=== PATIENT | female | born 1980 | race Native Hawaiian/Other Pacific Islander ===

== ENCOUNTER 2023-10-01 12:12 | Emergency (ER) | payer MEDICARE, MEDICAID, SELFPAY ==
[2023-10-01 12:14] VITALS: BP 139/88; PULSE 86; RESP 14; TEMP 35.4; O2SAT 100; BMI 38.8
--- NOTE | 2023-10-01 12:59 | EKG12_ITS ---
Test Reason : PLACEMENT Blood Pressure : / mmHG Vent. Rate : 077 BPM Atrial Rate : 077 BPM P-R Int : 182 ms QRS Dur : 090 ms QT Int : 366 ms P-R-T Axes : 025 -27 -07 degrees QTc Int : 414 ms Normal sinus rhythm with sinus arrhythmia Minimal voltage criteria for LVH, may be normal variant ( R in aVL ) Borderline ECG No previous ECGs available Confirmed by ASHANTI SAUNDERS, NIDIA ([id number]), supervising editor trailer GRIS HEMPHILL ([id number]) on 10/07/2023 6:13:09 AM Referred By: Confirmed By:NIDIA BURRELL MD
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
[2023-10-01 13:14] VITALS: RESP 16
[2023-10-01 13:28] LABS: Absolute Lymphocyte Count 1.78 X10^3/uL (0.83-4.51); Absolute Neutrophil Count 2.8 X10^3/uL (2.0-7.7); Amphetamine Urine VISTA NEGATIVE (<1000 ng/mL); Barbiturate Urine VISTA NEGATIVE (< 200 ng/mL); Basophil# 0.09 X10^3/uL; Basophil% 1.7 % (0-1); Benzodiazepine Urine VISTA NEGATIVE (< 200 ng/mL); Cocaine Urine VISTA NEGATIVE (< 300 ng/mL); Ecstacy Urine VISTA NEGATIVE (< 500 ng/mL); Eosinophil# 0.15 X10^3/uL; Eosinophils% 2.9 % (0-5); Hematocrit 45.1 % (37-47); Hemoglobin 13.6 g/dL (12.0-15.0); Internal QC Validated? YES +Cl - CLEAR BKGD; Lymphocyte # 1.78 X10^3/ul (0.83-4.51); Lymphocyte % 34.2 % (19-41); Mean Corp Hgb Conc 30.2 g/dL (32-36); Mean Corpuscular Hgb 23.7 pg (27.0-32.0); Mean Corpuscular Volume 78.6 fL (81-99); Mean Platelet Vol. 10.9 fl (6.2-12.0); Methadone Urine VISTA NEGATIVE (< 300 ng/mL); Monocyte# 0.36 X10^3/uL; Monocyte% 6.9 % (0-10); NRBC Flagged by Analyzer 0 % (0-5); Neutrophil # 2.82 X10^3/uL (2.7-7.7); Neutrophil % 54.1 % (47-70); PCP Urine VISTA NEGATIVE (< 25 ng/mL); Platelet Count 243 K/mm3 (150-450); Pregnancy, Serum, hCG Quali. NEGATIVE Negative; RBC Distribution Width CV 13.2 % (11.6-14.6); RBC Distribution Width SD 37.2 fl (35.1-43.9); Red Blood Count 5.74 M/mm3 (4.2-5.4); THC Urine VISTA NEGATIVE (< 50 ng/mL); Vista UDS pH Range 5; White Blood Count 5.2 K/mm3 (4.4-11.0)
[2023-10-01 13:30] LABS: Alcohol, Blood (Medical)-Serum < 3.0 mg/dL
[2023-10-01 13:34] LABS: ALB/GLOB Ratio 1.2 RATIO (0.9-2.4); AST(SGOT) 56 U/L (15-37); Alanine Aminotransfer ALT/SGPT 62 U/L (13-56); Albumin, Serum 4.2 g/dL (3.2-5.0); Alkaline Phosphatase 170 U/L (45-117); Anion Gap 5 (5-15); BUN 9 mg/dL (7-18); BUN/Creat Ratio 7.1 RATIO (10-20); Calcium,Total 9.6 mg/dL (8.5-10.1); Chloride 104 mmol/L (98-107); Creatinine, Serum 1.26 mg/dL (0.55-1.02); EST Glomerular Filtration Rate 49 mL/min (>60); Est Glom Filt Rate - Afr Amer 59 mL/min (>60); Estimated Creatinine Clearance 66.47 ml/min; Globulin 3.4 g/dL (2.2-4.2); Glucose 378 mg/dL (74-106); Potassium 3.5 mmol/L (3.5-5.1); Protein, Total 7.6 g/dL (6.4-8.2); Sodium Level 134 mmol/L (136-145)
[2023-10-01 14:00] VITALS: RESP 16
[2023-10-01 15:00] VITALS: RESP 18
[2023-10-01 15:41] VITALS: BP 133/78; PULSE 76; RESP 14; O2SAT 99
--- NOTE | 2023-10-01 17:52 | ED.RN ---
ALEXA JOSHUA FROM [facility], PT REFERRED TO [place] [facility]
[2023-10-01 19:33] VITALS: BP 133/80; PULSE 78; RESP 17; TEMP 36.6; O2SAT 100
--- NOTE | 2023-10-01 19:37 | ED.RN ---
Report given to Marysol MCNAMARA @ [facility].
== END 2023-10-01 19:52 ==
LOC: ED 13:17
PROVIDERS: Emergency Provider Emergency Medicine; PCP Family Medicine; Visit Provider Emergency Medicine
DX: F20.9 Schizophrenia, unspecified (principal); R45.851 Suicidal ideations; Z79.899 Other long term (current) drug therapy
CPT/HCPCS: 80053; 80307; 80320; 84703; 85025; 93005; 99284; G0480

== ENCOUNTER 2024-04-30 20:05 | Emergency (ER) | payer MEDICARE, MEDICAID, SELFPAY ==
[2024-04-30 20:05] VITALS: BP 134/96; PULSE 125; RESP 20; TEMP 36.6; O2SAT 97; BMI 37.7
--- NOTE | 2024-04-30 21:03 | EX.ED.DYSGE1 ---
HPI <DANIKA Godfrey - Last Filed: 04/30/24 21:52> History of Present Illness Chief Complaint: Nausea/Vomiting/Diarrhea Narrative Narrative: Patient is a 43-year-old female with history of anxiety, bipolar, diabetes, hypothyroidism, cholesterol presents [facility] for 1 day of nausea, vomiting, diarrhea. Patient states she woke up with this. She denies any other sick contacts. Patient denies any blood in her stool or vomit. Patient was mostly concerned because she is diabetic and cannot take anything by mouth today. Patient states her last blood sugar was 186. Here for evaluation <Dr. Efe Mauricio DO - Last Filed: 04/30/24 22:53> Narrative Narrative: Patient is a 43-year-old female with history of anxiety, bipolar, diabetes, hypothyroidism, cholesterol presents to the emergency department for 1 day of nausea, vomiting, diarrhea. Patient states she woke up with this. She denies any other sick contacts. Patient denies any blood in her stool or vomit. Patient was mostly concerned because she is diabetic and cannot take anything by mouth today. Patient states her last blood sugar was 186. Here for evaluation [facility] <DANIKA Godfrey - Last Filed: 04/30/24 21:52> [facility] Medical History (Updated 04/30/24 @ 21:51 by DANIKA Godfrey) Schizophrenia Auditory hallucinations Home Medications ?Medication ?Instructions ?Recorded ?Last Taken ?Type albuterol 90 mcg/actuation aerosol mcg inhalation PRN PRN wheezing 10/01/23 Unknown History inhaler amitriptyline 10 mg tablet 10 mg PO QHS 10/01/23 Unknown History cariprazine 1.5 mg capsule 1.5 mg PO DAILY 10/01/23 Unknown History cetirizine 10 mg tablet (24Hour 10 mg PO DAILY PRN allergy symptoms 10/01/23 Unknown History Allergy) clobetasol 0.05 % topical cream 1 applic topical DAILY 10/01/23 Unknown History dulaglutide 0.75 mg/0.5 mL 0.75 mg subcut QWEEK 10/01/23 Unknown History subcutaneous pen injector (Trulicity) estradiol 10 mcg vaginal insert 10 mcg vaginal DAILY 10/01/23 Unknown History fluticasone propionate 50 2 spray intranasal DAILY PRN 10/01/23 Unknown History mcg/actuation nasal allergy symptoms spray,suspension (Allergy Relief (fluticasone)) hydroxyzine pamoate 25 mg capsule 25 mg PO BID 10/01/23 Unknown History lamotrigine 200 mg tablet 200 mg PO QPM 10/01/23 Unknown History (Lamictal) levothyroxine 200 mcg tablet 200 mcg PO DAILY 10/01/23 Unknown History (Synthroid) nystatin 100,000 unit/gram topical 1 applic topical DAILY 10/01/23 Unknown History cream omeprazole 20 mg capsule,delayed 20 mg PO DAILY 10/01/23 Unknown History release propranolol 20 mg tablet 20 mg PO BID 10/01/23 Unknown History rosuvastatin 40 mg tablet 40 mg PO DAILY 10/01/23 Unknown History insulin glargine 100 unit/mL (3 unit subcut 04/30/24 Unknown History mL) subcutaneous pen (Basaglar KwikPen U-100 Insulin) ondansetron 4 mg disintegrating 4 mg PO Q8H PRN PRN Nausea #10 tabs 04/30/24 Unknown Rx tablet prazosin 2 mg capsule 4 mg PO QHS 04/30/24 Unknown History prazosin 5 mg capsule 5 mg PO QHS 04/30/24 Unknown History Allergy/AdvReac Type Severity Reaction Status Date / Time sumatriptan (From Imitrex) Allergy Unknown Other Verified 04/30/24 20:08 promethazine (From Phenergan) AdvReac Severe Other Verified 04/30/24 20:08 cephalexin (From Keflex) AdvReac Nausea/Vom/ Verified 04/30/24 20:08 Diarrhea Social History Smoking Status: Never smoker ROS <DANIKA Godfrey - Last Filed: 04/30/24 21:52> ROS ED ROS Narrative Constitutional: Negative for fever, chills, weight loss, weakness Eyes: Negative for vision loss, vision change, double vision ENT: Negative for any sore throat, ear pain, congestion Cardiovascular: Negative for any chest pain, tightness, palpitations Respiratory: Negative for any cough, sputum production, hemoptysis, dyspnea, dyspnea on exertion, orthopnea Gastrointestinal: Negative for any abdominal pain, constipation, blood in stool, blood in vomit. Positive for nausea and vomiting diarrhea : Negative for any urinary frequency, dysuria, retention, blood in urine Muscle skeletal: Negative for any neck pain, back pain Neurological: Negative for any headache, syncope, dizziness Skin: Negative for any rashes, itching, abrasions, lacerations Psychiatric: Negative for any depression, anxiety, stress, suicidal ideation, homicidal ideation Hematologic: Negative for any excessive bruising, easy bleeding EXAM <DANIKA Godfrey - Last Filed: 04/30/24 21:52> Physical Exam Narrative Exam Narrative: Vital signs reviewed. HEET: Head normocephalic atraumatic, TMs clear bilaterally. Posterior pharynx is clear, moist mucous membranes. Nares clear bilaterally. Neck: Supple with no lymphadenopathy or tenderness. No signs of meningismus. Cardiac: Regular rate and rhythm no murmurs gallops or rubs, equal peripheral pulses bilaterally. Respiratory: Lungs clear to auscultation bilaterally. No chest tenderness. Abdomen: Soft, nontender, nondistended. No abdominal bruit or pulsatile masses. No hepatosplenomegaly Extremities: No peripheral edema, no signs of gross trauma or deformity. Active full range of motion of all extremities. Neuro: Cranial nerves II through XII intact, no focal neurological deficits. Skin: Clean dry and intact with no rash, purpura, petechiae, vesicles or pustules. Backs/flank: No CVA tenderness, no midline spinal tenderness, no deformity. Psych: Normal mood and affect. No SI, HI or acute psychosis. Const Vital Signs: 04/30/24 20:05 04/30/24 22:05 04/30/24 22:08 Temperature 97.9 F Temperature Source Temporal Pulse Rate 125 H 99 103 H Respiratory Rate 20 H 18 20 H Blood Pressure 134/96 H 117/77 117/77 Blood Pressure Mean 108 90 90 Pulse Ox 97 100 100 Oxygen Delivery Method Room Air Room Air Room Air <Dr. Efe Mauricio DO - Last Filed: 04/30/24 22:53> Physical Exam Const Vital Signs: 04/30/24 20:05 04/30/24 22:05 04/30/24 22:08 Temperature 97.9 F Temperature Source Temporal Pulse Rate 125 H 99 103 H Respiratory Rate 20 H 18 20 H Blood Pressure 134/96 H 117/77 117/77 Blood Pressure Mean 108 90 90 Pulse Ox 97 100 100 Oxygen Delivery Method Room Air Room Air Room Air MDM <Valente MayaDANIKA - Last Filed: 04/30/24 21:52> [facility] Lab Data Labs: Laboratory Results - last 24 hr 04/30/24 21:09 WBC 5.6 RBC 5.74 H Hgb 12.7 Hct 42.1 MCV 73.3 L MCH 22.1 L MCHC 30.2 L RDW Std Deviation 40.5 RDW Coeff of Elham 15.6 H Plt Count 277 MPV 11.0 Immature Gran % (Auto) 0.400 Neut % (Auto) 82.5 H Lymph % (Auto) 11.9 L [place] % (Auto) 3.6 Eos % (Auto) 0.7 Baso % (Auto) 0.9 Absolute Neuts (auto) 4.7 Absolute Lymphs (auto) 0.67 L Nucleated RBC % 0 Sodium 140 Potassium 3.6 Chloride 106 Carbon Dioxide 26.0 Anion Gap 7 BUN 12 Creatinine 1.12 H Estim Creat Clear Calc 73.58 Est GFR (MDRD) Af Amer 68 Est GFR (MDRD) Non-Af 56 L BUN/Creatinine Ratio 10.7 Glucose 193 H Calcium 9.1 Total Bilirubin 1.00 AST 41 H ALT 41 Alkaline Phosphatase 137 H Total Protein 7.8 Albumin 4.2 Globulin 3.6 Albumin/Globulin Ratio 1.2 Lipase 45 Urine Color Yellow Urine Clarity Clear Urine pH 6.0 Ur Specific [place] 1.015 Urine Protein 15 H Urine Glucose (UA) Normal Urine Ketones Negative Urine Occult Blood Negative Urine Nitrite Negative Urine Bilirubin Negative Urine Urobilinogen Normal Ur Leukocyte Esterase Negative Urine RBC 0 SEEN Urine WBC 0 SEEN Ur Squamous Epith Cells 0-5 SEEN Urine Bacteria 0 SEEN Urine Mucus 0 SEEN Urine Test Negative Treatment and Re-Evaluation :: Differential diagnosis includes however is not limited to: Viral gastroenteritis, bowel obstruction, dehydration, DKA, electrolyte abnormality Patient appears to be in no obvious respiratory distress, patient's vital signs do show some tachycardia however the remainder were unremarkable. Presenting to the emergency department with nausea vomiting diarrhea. Secondary to the heart rate, patient received IV fluids, Zofran, patient will be also given IV Pepcid. Patient abdominal exam was unremarkable, she had no localized pain. Active bowel sounds, no peritoneal signs. At this time no advanced imaging is ordered. Patient will be reevaluated. Patient's laboratory values showed a normal CBC, no leukocytosis. Chemistries show a creatinine of 1.1, this is baseline. Glucose 193, AST 41, alkaline phos 237 lipase was negative. Patient responded well to normal saline, IV Zofran IV Pepcid. At this time, patient's vital signs improved. Patient be diagnosed with a viral gastroenteritis. At this time, Patient is stable for discharge. Patient will be able to use [id number] ibuprofen, Tylenol, Zofran. Instructed return for any worsening symptoms. Stable for discharge. <Dr. Efe Mauricio, DO - Last Filed: 04/30/24 22:53> [facility] Lab Data Labs: Laboratory Results - last 24 hr 04/30/24 21:09 WBC 5.6 RBC 5.74 H Hgb 12.7 Hct 42.1 MCV 73.3 L MCH 22.1 L MCHC 30.2 L RDW Std Deviation 40.5 RDW Coeff of Elham 15.6 H Plt Count 277 MPV 11.0 Immature Gran % (Auto) 0.400 Neut % (Auto) 82.5 H Lymph % (Auto) 11.9 L [place] % (Auto) 3.6 Eos % (Auto) 0.7 Baso % (Auto) 0.9 Absolute Neuts (auto) 4.7 Absolute Lymphs (auto) 0.67 L Nucleated RBC % 0 Sodium 140 Potassium 3.6 Chloride 106 Carbon Dioxide 26.0 Anion Gap 7 BUN 12 Creatinine 1.12 H Estim Creat Clear Calc 73.58 Est GFR (MDRD) Af Amer 68 Est GFR (MDRD) Non-Af 56 L BUN/Creatinine Ratio 10.7 Glucose 193 H Calcium 9.1 Total Bilirubin 1.00 AST 41 H ALT 41 Alkaline Phosphatase 137 H Total Protein 7.8 Albumin 4.2 Globulin 3.6 Albumin/Globulin Ratio 1.2 Lipase 45 Urine Color Yellow Urine Clarity Clear Urine pH 6.0 Ur Specific [place] 1.015 Urine Protein 15 H Urine Glucose (UA) Normal Urine Ketones Negative Urine Occult Blood Negative Urine Nitrite Negative Urine Bilirubin Negative Urine Urobilinogen Normal Ur Leukocyte Esterase Negative Urine RBC 0 SEEN Urine WBC 0 SEEN Ur Squamous Epith Cells 0-5 SEEN Urine Bacteria 0 SEEN Urine Mucus 0 SEEN Urine Test Negative Treatment and Re-Evaluation :: Differential diagnosis includes however is not limited to: Viral gastroenteritis, bowel obstruction, dehydration, DKA, electrolyte abnormality Patient appears to be in no obvious respiratory distress, patient's vital signs do show some tachycardia however the remainder were unremarkable. Presenting to the emergency department with nausea vomiting diarrhea. Secondary to the heart rate, patient received IV fluids, Zofran, patient will be also given IV Pepcid. Patient abdominal exam was unremarkable, she had no localized pain. Active bowel sounds, no peritoneal signs. At this time no advanced imaging is ordered. Patient will be reevaluated. Patient's laboratory values showed a normal CBC, no leukocytosis. Chemistries show a creatinine of 1.1, this is baseline. Glucose 193, AST 41, alkaline phos 237 lipase was negative. Patient responded well to normal saline, IV Zofran IV Pepcid. At this time, patient's vital signs improved. Patient be diagnosed with a viral gastroenteritis. At this time, Patient is stable for discharge. Patient will be able to use [id number] ibuprofen, Tylenol, Zofran. Instructed return for any worsening symptoms. Stable for discharge. ED attending note: I evaluated the patient in conjunction with the JERRY. I agree with his/her statements and above findings. I have personally performed a face to face assessment of the patient and have reviewed the JERRY Note. I performed a substantive portion of the visit including all aspects of the following. I personally saw the patient performed chart review, physical exam, reviewed labs, imaging (if obtained), and formulated a treatment and management plan. Abdominal exam was benign. Patient was able tolerate p.o. Labs are reassuring. She was discharged with Zofran This note was generated with Canva dictation software. It may contain incorrect words, spelling, and punctuation that were not noted in review of the chart prior to signing. Discharge Plan Triage Chief Complaint: Nausea/Vomiting/Diarrhea ED Midlevel Provider: Valente Maya ED Provider: Efe Mauricio Dx/Rx/DC Orders Clinical Impression: Viral gastroenteritis Instructions: ED Gastritis (Adult), ED Gastroenteritis, Viral (Adult) Prescriptions: New ondansetron 4 mg tablet,disintegrating 4 mg PO Q8H PRN PRN (Reason: Nausea) Qty: 10 0RF No Action albuterol 90 mcg/actuation aerosol inhalation PRN PRN (Reason: wheezing) Rx Instructions: 2 puffs Q4H PRN amitriptyline 10 mg tablet 10 mg PO QHS cariprazine 1.5 mg capsule 1.5 mg PO DAILY cetirizine [24Hour Allergy] 10 mg tablet 10 mg PO DAILY PRN (Reason: allergy symptoms) clobetasol 0.05 % cream 1 applic topical DAILY Trulicity 0.75 mg/0.5 mL pen injector 0.75 mg subcut QWEEK estradiol 10 mcg insert 10 mcg vaginal DAILY fluticasone propionate [Allergy Relief (fluticasone)] 50 mcg/actuation spray,suspension 2 spray intranasal DAILY PRN (Reason: allergy symptoms) Rx Instructions: administer into each nostril hydroxyzine pamoate 25 mg capsule 25 mg PO BID lamotrigine [Lamictal] 200 mg tablet 200 mg PO QPM levothyroxine [Synthroid] 200 mcg tablet 200 mcg PO DAILY nystatin 100,000 unit/gram cream 1 applic topical DAILY omeprazole 20 mg capsule,delayed release(DR/EC) 20 mg PO DAILY Patient Comments: 1/2 hr before meal propranolol 20 mg tablet 20 mg PO BID rosuvastatin 40 mg tablet 40 mg PO DAILY prazosin 5 mg capsule 5 mg PO QHS prazosin 2 mg capsule 4 mg PO QHS insulin glargine [Basaglar KwikPen U-100 Insulin] 100 unit/mL (3 mL) insulin pen subcut Primary Care Provider: Mansoor Galvan Referrals: Mansoor Galvan MD [Primary Care Provider] - Activity Restrictions/Additional Instructions: Advance her diet as tolerated. Keep a close eye on your sugars. Use the Zofran as needed. Print Language: Serbian Disposition Disposition: Home, Self Care
[2024-04-30] MEDS: Famotidine 200 MG/20 ML MDV 20 MG in 0.9% Normal Saline (Pres. free 8 ML 300 MG IV (21:24)
[2024-04-30] MEDS: 0.9% Normal Saline (1000mL) 1,000 ML 999 ML IV (21:24)
[2024-04-30] MEDS: Ondansetron 4 MG/2 ML Vial IV (21:24)
[2024-04-30 21:25] LABS: Absolute Lymphocyte Count 0.67 X10^3/uL (0.83-4.51); Absolute Neutrophil Count 4.7 X10^3/uL (2.0-7.7); Basophil# 0.05 X10^3/uL; Basophil% 0.9 % (0-1); Eosinophil# 0.04 X10^3/uL; Eosinophils% 0.7 % (0-5); Hematocrit 42.1 % (37-47); Hemoglobin 12.7 g/dL (12.0-15.0); Lymphocyte # 0.67 X10^3/ul (0.83-4.51); Lymphocyte % 11.9 % (19-41); Mean Corp Hgb Conc 30.2 g/dL (32-36); Mean Corpuscular Hgb 22.1 pg (27.0-32.0); Mean Corpuscular Volume 73.3 fL (81-99); Monocyte% 3.6 % (0-10); NRBC Flagged by Analyzer 0 % (0-5); Neutrophil # 4.65 X10^3/uL (2.7-7.7); Neutrophil % 82.5 % (47-70); Platelet Count 277 K/mm3 (150-450); RBC Distribution Width CV 15.6 % (11.6-14.6); RBC Distribution Width SD 40.5 fl (35.1-43.9); Red Blood Count 5.74 M/mm3 (4.2-5.4); White Blood Count 5.6 K/mm3 (4.4-11.0)
[2024-04-30 21:38] LABS: Bacteria 0 SEEN /hpf (None Seen); Mucous, Urine 0 SEEN /hpf (<or=2+); Red Blood Cells-Urine 0 SEEN /hpf (0-5); White Blood Cells 0 SEEN /hpf (0-5)
[2024-04-30 21:39] LABS: Color, Urine Yellow (Yellow); Glucose, Dipstick Normal (Normal); Ketone-Dipstick Negative (Negative); Leukocyte Esterase-Dipstick Negative /ul (Negative); Nitrite-Dipstick Negative (Negative); Occult Blood-Urine Negative /ul (Negative); Protein-Dipstick 15 mg/dl (Negative); Specific Gravity, Urine 1.015 (1.002-1.030); Urine Bilirubin Dipstick Negative (Negative); Urine Clarity Clear (Clear); Urine Urobilinogen Normal (Normal)
[2024-04-30 21:42] LABS: Internal QC Validated? YES +Cl - CLEAR BKGD; Pregnancy, Urine Negative Negative
[2024-04-30 21:47] LABS: ALB/GLOB Ratio 1.2 RATIO (0.9-2.4); AST(SGOT) 41 U/L (15-37); Alanine Aminotransfer ALT/SGPT 41 U/L (13-56); Albumin, Serum 4.2 g/dL (3.2-5.0); Alkaline Phosphatase 137 U/L (45-117); Anion Gap 7 (5-15); BUN 12 mg/dL (7-18); BUN/Creat Ratio 10.7 RATIO (10-20); Calcium,Total 9.1 mg/dL (8.5-10.1); Chloride 106 mmol/L (98-107); Creatinine, Serum 1.12 mg/dL (0.55-1.02); EST Glomerular Filtration Rate 56 mL/min (>60); Est Glom Filt Rate - Afr Amer 68 mL/min (>60); Estimated Creatinine Clearance 73.58 ml/min; Globulin 3.6 g/dL (2.2-4.2); Glucose 193 mg/dL (74-106); Lipase 45 U/L (13-75); Potassium 3.6 mmol/L (3.5-5.1); Protein, Total 7.8 g/dL (6.4-8.2); Sodium Level 140 mmol/L (136-145)
[2024-04-30 21:51] LABS: Squamous Epithelial Cells - UA 0-5 SEEN /hpf (5-10)
[2024-04-30 22:05] VITALS: BP 117/77; PULSE 99; RESP 18; O2SAT 100
[2024-04-30 22:08] VITALS: BP 117/77; PULSE 103; RESP 20; O2SAT 100
[2024-04-30 22:55] VITALS: BP 118/80; PULSE 99; RESP 18; TEMP 36.7; O2SAT 100
== END 2024-04-30 22:59 | disposition home or self-care (01) ==
PROVIDERS: Nurse Practitioner; Emergency Provider Emergency Medicine; PCP Family Medicine; Visit Provider Emergency Medicine
DX: A08.4 Viral intestinal infection, unspecified (principal); E11.9 Type 2 diabetes mellitus without complications; Z79.4 Long term (current) use of insulin; F41.9 Anxiety disorder, unspecified; E03.9 Hypothyroidism, unspecified
CPT/HCPCS: 80053; 81001; 81025; 83690; 85025; 96361; 96374; 99284; A4216; J2405